=== PATIENT | male | born 1960 | race Caucasian/White ===

== ENCOUNTER 2025-04-25 23:40 | Emergency (ER) | payer MEDICARE, SELFPAY ==
--- NOTE | 2025-04-25 23:30 | ED_ITS ---
HPI HPI - Head Injury General Chief complaint: Head Injury Stated complaint: FALL; R ARM LACERATION, HEAD LACERATION Time Seen by Provider: 04/26/25 01:32 History of Present Illness HPI Narrative: patient drinking ETOH tonight. Reportedly fell down 4 stairs. Struck the back of his head and loss consciousness. Sustained laceration occipital scalp and abrasion right elbow. Transferred via Squad. Arrives awake with hard collar in place. No complaint at this time. On his phone with family. Denies headache or neck pain. No back or rib cage pain . Denies pain of his hips or lower extremities and readily moves both without discomfort. no nausea , dizziness or visual complaint Related Data Allergies Allergy/AdvReac Type Severity Reaction Status Date / Time Penicillins Allergy Unknown Unknown Verified 04/25/25 23:36 codeine Allergy Unknown Verified 04/25/25 23:36 Review of Systems ROS Status of ROS 10 or more systems reviewed and unremark able except as noted in history and below PFSH PFSH Social History Little interest or pleasure in doing things: not at all Feeling down, depressed, or hopeless: not at all Exam Constitutional Vital Signs, click to edit/add: Last Vital Signs Temp 98.1 F 04/25/25 23:32 Pulse 56 L 04/25/25 23:32 Resp 17 04/25/25 23:32 BP 103/68 04/26/25 01:12 Pulse Ox 99 04/25/25 23:32 O2 Del Method Room Air 04/25/25 23:32 Common normals: no apparent distress, oriented x3, no limitations, alert and well nourished HENNE Other: occipital right sided abrasion Eye Common normals: EOMs intact bilaterally and conjunctivae normal Neck & C-Spine Other: in hard collar Chest Common normals: inspection of chest normal and palpation of chest normal Respiratory Common normals: normal respiratory effort, no retractions, no use of accessory muscles and clear to auscultation bilaterally Cardio Common normals: regular rate, regular rhythm, S1 normal heart sound and S2 normal heart sound GI Common normals: Normal to inspection, nondistended, normoactive bowel sounds present, soft to palpation and non-tender Extremity Other: abrasion/skin tear right elbow. no swelling. FROM without discomfort Neuro Common normals: oriented x3, CN's II-XII intact bilaterally, moves all extremities and no focal motor deficits Psych Appearance: grossly normal Course Vital Signs Vital signs: Vital Signs Temperature 98.1 F 04/25/25 23:32 Pulse Rate 56 L 04/25/25 23:32 Respiratory Rate 17 04/25/25 23:32 Blood Pressure 107/61 04/25/25 23:32 Pulse Oximetry 99 04/25/25 23:32 Oxygen Delivery Method Room Air 04/25/25 23:32 Temperature 98.1 F 04/25/25 23:32 Pulse Rate 56 L 04/25/25 23:32 Respiratory Rate 17 04/25/25 23:32 Blood Pressure 103/68 04/26/25 01:12 Pulse Oximetry 99 04/25/25 23:32 Oxygen Delivery Method Room Air 04/25/25 23:32 MDM - Head Injury MDM Narrative Medical decision making narrative: patient drinking tonight and fell down about 4 stairs. Did strike the back of his right occipital scalp and sustained a deep abrasion that does not require repair. Did loose consciousness. Also abrasion right elbow. Initial exam without any additional findings. On repeat exam he complains of sore right hip but has FROM and able to ambulate to the bathroom. CT brain and C-spine without acute changes. xray of his right elbow neg for fracture. Wounds cleaned and dressed by nursing and patient discharged home Lab Data Labs: Lab Results 04/26/25 Range/Units 00:02 WBC 7.3 (4.0-11.0) 10^3/uL RBC 3.00 L (4.70-6.10) 10^6/uL Hgb 10.3 L (14.0-18.0) g/dL Hct 29.4 L (42.0-54.0) % MCV 98.0 H (80.0-94.0) fL MCH 34.3 H (25.9-34.0) pg MCHC 35.0 (29.9-35.2) g/dL RDW 13.9 (11.0-15.0) % Plt Count 157 (150-450) 10^3/uL MPV 9.9 (9.5-13.5) fL Neut % (Auto) 57.5 (43.0-75.0) % Lymph % (Auto) 31.7 (20.5-60.0) % [place] % (Auto) 8.0 (1.7-12.0) % Eos % (Auto) 1.5 (0.9-7.0) % Baso % (Auto) 0.8 (0.2-2.0) % Neut # (Auto) 4.2 (1.4-6.5) 10^3/uL Lymph # (Auto) 2.3 (1.2-3.8) 10^3/uL [place] # (Auto) 0.6 (0.3-0.8) 10^3/uL Eos # (Auto) 0.1 (0.0-0.7) 10^3/uL Baso # (Auto) 0.1 (0.0-0.1) 10^3/uL Abs Immat Gran (auto) 0.04 H (0.00-0.03) 10^3/uL Imm/Tot Granulo (auto) 0.5 (0.0-0.5) % Sodium 130 L (136-145) mmol/L Potassium 3.2 L (3.5-5.1) mmol/L Chloride 91 L (98-107) mmol/L Carbon Dioxide 24.6 (21.0-32.0) mmol/L Anion Gap 17.6 BUN 6.0 L (7.0-18.0) mg/dL Creatinine 1.05 (0.70-1.30) mg/dL Est GFR ( Amer) >60 (>=60 mL/min/1.73m^2) Est GFR (Non-Af Amer) >60 (>=60 mL/min/1.73m^2) BUN/Creatinine Ratio 5.7 Glucose 101 (74-106) mg/dL Calcium 9.0 (8.5-10.1) mg/dL Ethanol Quant 114 mg/dL Discharge Plan Discharge Chief Complaint: Head Injury Clinical Impression: Concussion with loss of consciousness, Abrasion of scalp, Abrasion of elbow, right, Contusion of hip, right, Alcohol intoxication Patient Disposition: Home, Self-Care Print Language: [place] Instructions: Concussion (ED), Alcohol Intoxication (ED), Abrasion (ED), Hip Contusion (ED) Additional Instructions: follow up with your doctor in 2-3 days for recheck Referrals: Physician,Non-Staff, MD [Primary Care Provider] - 1 week Discharge Date/Time: 04/26/25 03:21
[2025-04-25 23:32] VITALS: BP 107/61; PULSE 56; TEMP 36.7; O2SAT 99; BMI 20.8
--- NOTE | 2025-04-25 23:35 | XR_ITS ---
[facility] [id number] Patient Name: ZACKERY HICKS MRN: [id number] date: 1960 Sex: M Assigned Patient Location: ED.MAIN Current Patient Location: Accession/Order Number: [id number] Exam Date: 04/26/2025 06:31 Report Date: 04/26/2025 06:32 At the request of: LORENA CARROLL MD Procedure: XR elbow RT min 3V 3 views right elbowelbow plain film COMPARISON :None HISTORY: Fell. Right elbow injury ACUTE FINDINGS: None DEGENERATIVE CHANGE: Unremarkable SOFT TISSUE FINDINGS: Unremarkable JOINT EFFUSION: None POSTOP CHANGES: None BONE MINERALIZATION: Adequate XR/XR elbow RT min 3V IMPRESSION: No acute displaced fracture Impression dictated by: Zackery Thapa M.D. 04/26/2025 6:32 AM Dictation Location: [place] [id number] Electronically authenticated by: [id number] Y Date: 04/26/2025 06:32
[2025-04-26 00:07] LABS: Basophils Absolute Auto 0.1 10^3/uL (0.0-0.1); Basophils Percent Auto 0.8 % (0.2-2.0); Eosinophils Absolute Auto 0.1 10^3/uL (0.0-0.7); Eosinophils Percent Auto 1.5 % (0.9-7.0); Hematocrit 29.4 % (42.0-54.0); Hemoglobin 10.3 g/dL (14.0-18.0); Immature Granulocytes Abs Auto 0.04 10^3/uL (0.00-0.03); Immature Granulocytes Pct Auto 0.5 % (0.0-0.5); Lymphocytes Absolute Auto 2.3 10^3/uL (1.2-3.8); Lymphocytes Percent Auto 31.7 % (20.5-60.0); Mean Corpuscular Hemoglobin 34.3 pg (25.9-34.0); Mean Platelet Volume 9.9 fL (9.5-13.5); Monocytes Absolute Auto 0.6 10^3/uL (0.3-0.8); Neutrophils Absolute Auto 4.2 10^3/uL (1.4-6.5); Neutrophils Percent Auto 57.5 % (43.0-75.0); Platelet Count 157 10^3/uL (150-450); Red Cell Distribution Width 13.9 % (11.0-15.0); White Blood Count 7.3 10^3/uL (4.0-11.0)
[2025-04-26 00:19] LABS: Anion Gap 17.6; BUN Creatinine Ratio 5.7; Carbon Dioxide 24.6 mmol/L (21.0-32.0); Chloride 91 mmol/L (98-107); Estimated GFR (African America >60 (>=60 mL/min/1.73m^2); Estimated GFR (Non-African Ame >60 (>=60 mL/min/1.73m^2); Ethanol 114 mg/dL; Glucose 101 mg/dL (74-106); Potassium 3.2 mmol/L (3.5-5.1); Sodium 130 mmol/L (136-145)
--- NOTE | 2025-04-26 01:11 | PC.NURSE ---
abrasion to RFA cleansed with sterile saline, bacitracin applied and dressing applied.
[2025-04-26 01:12] VITALS: BP 103/68
[2025-04-26] MEDS: BACITRACIN 0.9 GM PACKET 1 PACKET TOPICAL (01:13)
== END 2025-04-26 03:21 | disposition home or self-care (01) ==
PROVIDERS: Emergency Provider Internal Medicine
DX: S06.0X9A Concussion with loss of consciousness of unspecified duration, initial encounter (principal); W10.8XXA Fall (on) (from) other stairs and steps, initial encounter; S50.311A Abrasion of right elbow, initial encounter; S00.01XA Abrasion of scalp, initial encounter; S70.01XA Contusion of right hip, initial encounter; F10.129 Alcohol abuse with intoxication, unspecified; Y90.5 Blood alcohol level of 100-119 mg/100 ml
CPT/HCPCS: 36415; 70450; 72125; 73080; 80048; 80320; 85025; 99285

== ENCOUNTER 2025-05-17 14:23 | Outpatient (OUT) | payer MEDICARE, SELFPAY ==
--- NOTE | 2025-05-17 15:48 | PM.CN ---
Consult Note: HPI Data of Consult Patient: new to practice Consult date: 05/17/25 Requesting Physician: Rubia Marcum MD Primary Care Provider: Non-Staff Physician, Consult Narrative Reason for consult: low back pain Narrative: 64yom who presents for evaluation. longstanding low back pain history >20 years. states that he has never had surgery or injections. states imaging completed in past year in [place]. prescribed hydrocodone by physician in [place], smokes marijuana daily. previous cocaine user. cc:: CC: Rubia Marcum MD Review of Systems ROS Status of ROS 10 or more systems reviewed and unremarkable except as noted in history and below PFSH PFSH Social History Little interest or pleasure in doing things: not at all Feeling down, depressed, or hopeless: not at all Meds Home Medications and Allergies Allergies Allergy/AdvReac Type Severity Reaction Status Date / Time Penicillins Allergy Unknown Unknown Verified 04/25/25 23:36 codeine Allergy Unknown Verified 04/25/25 23:36 Exam Narrative Exam Narrative: Psych-alert and oriented x 3. Attentive and appropriate, constitutionally normal, displays normal mood and affect per situation.? There are no obvious deficits in memory, reasoning, or intellect.? Skin-no obvious rashes, bruising, erythema noted to the patient's area of pain. Extremities- extremities are warm with minimal edema and palpable pulses. Lumbar-no significant tenderness to palpation noted in the lumbar spine and paraspinal musculature.? Pain is elicited with extension, and lateral rotation of the lumbar spine. Range of motion is slightly diminished with these motions due to pain. Facet loading maneuvers are positive bilaterally and do appear to be concordant with the patient's normal complaints of pain.? Coordination remains intact.? Gait remains non-antalgic. Assessment and Plan Assessment and Plan (1) Lumbar spondylosis: Plan 64yom who presents for evaluation. failed conservative measures, as noted. discussed that given history of low back pain, would try to obtain records from [place] to see what imaging shows. he agreed. also discussed that given marijuana use and drug history, he would be a non-opioid candidate. he states that he is still getting pain medicine from his doctor in [place] so would not need any from our clinic anyways. of note, he also reports >20 episodes of syncope in past month. states that he has had this worked up in the past with cardiology and neurology, but no pathology found. strongly suggested he follow up with his pcp regarding these frequent falls. follow up in 1-2 months.
== END 2025-05-17 14:24 | disposition home or self-care (01) ==
LOC: PM 14:24
PROVIDERS: Visit Provider Anesthesiology
DX: M47.816 Spondylosis without myelopathy or radiculopathy, lumbar region (principal)
CPT/HCPCS: G0463